=== PATIENT | female | born 1990 | race Caucasian/White ===

== ENCOUNTER 2023-03-20 23:10 | Emergency (ER) | payer OTHER, SELFPAY ==
[2023-03-20] VITALS (8 sets, daily range): BP systolic 93–152; BP diastolic 69–101; PULSE 90–102; RESP 20–27; TEMP 36.4; O2SAT 95–98
--- NOTE | ~2023-03-20 | XR_ITS ---
Clinical Indication: Shortness of breath PA and lateral views of the chest: Comparison: None Findings: The lungs are clear, without evidence of focal consolidation or pleural effusion. Cardiome diastinal silhouette is within normal limits. Bones and soft tissues are unremarkable. Impression: Normal chest. Reviewed, dictated and finalized at [facility]. ANALYST Impression: Normal chest.
--- NOTE | 2023-03-20 23:21 | ECG_ITS ---
Measurements Intervals Foley Rate: 86 P: 59 SD: 157 QRS: 48 QRSD: 87 T: 29 QT: 334 QTc: 401 Interpretive Statements SINUS RHYTHM WITH SINUS ARRHYTHMIA POSSIBLE ANTERIOR MYOCARDIAL INFARCTION , OF INDETERMINATE AGE [30 ms Q WAVE IN V3/V4, OR R < 0.2 mV IN V4] NO PREVIOUS ECG AVAILABLE FOR COMPARISON Electronically Signed On 03-21-2023 13:32:04 [employer] by Burke Bowden M.D.
[2023-03-20] MEDS: IPRATROPIUM BR 0.02% INH SOLN 0.5 MG/2.5 ML VIAL INHALATION (23:58)
[2023-03-20] MEDS: ALBUTEROL SULFATE NEB 2.5 MG/3 ML INH INHALATION (23:58)
[2023-03-21] VITALS (7 sets, daily range): BP systolic 123; BP diastolic 78; PULSE 80–106; RESP 14–25; O2SAT 97–98
--- NOTE | 2023-03-21 00:08 | PC.NURSE ---
Neb completed. Attempted IV x 1, unsuccessful. xray ready for pt. Will let xray take and will try again.
[2023-03-21] MEDS: methylPREDNISolone SOD SUCC 125 MG VIAL IV PUSH (01:02)
--- NOTE | 2023-03-21 01:37 | ED.GENADULT ---
HPI - General Adult General Chief complaint: Shortness of Breath/Dyspnea Stated complaint: SOB Time Seen by Provider: 03/20/23 23:26 History of Present Illness HPI narrative: patient is a year old female who presents emergency department chief complaint of shortness of breath. The patient has prior history of asthma reports that she has had a stressful day and reports that she started wheezing and having her typical asthma attack. The patient reports this is not as bad as when she has required hospitalization in the past. Related Data Allergies Allergy/AdvReac Type Severity Reaction Status Date / Time diazepam Allergy Unknown Anaphylactic Verified 03/20/23 23:10 Shock diphenhydramine Allergy Unknown Anaphylactic Verified 03/20/23 23:10 Shock morphine Allergy Unknown Anaphylactic Verified 03/20/23 23:10 Shock Review of Systems Review of Systems: A 10 system review of systems was completed on the patient and is negative except for what is stated in the HPI. Nursing and ancillary documentation was reviewed. Exam Narrative: GENERAL: Well-appearing, well-nourished, and in no acute distress. HEAD: Normocephalic, atraumatic. EYES: PERRLA and EOMI. ENT: Nares clear, no rhinorrhea or epistaxis. Mucous membranes moist. NECK: Supple. CHEST: Scattered wheezes to auscultation. No respiratory distress. HEART: Regular rate and rhythm. No murmur heard. Normal peripheral pulses. ABDOMEN: Soft, nontender, nondistended, normal active bowel sounds. EXTREMITIES: Normal range of motion. No edema. SKIN: Warm, dry, no rash. NEURO: No focal deficits. Alert and oriented x3. PSYCH: Normal mood and affect. Course Vital Signs Vital signs: Vital Signs Temperature 36.4 C 03/20/23 23:11 Pulse Rate 96 03/20/23 23:11 Respiratory Rate 26 H 03/20/23 23:11 Blood Pressure 152/101 H 03/20/23 23:11 Pulse Oximetry 95 03/20/23 23:11 Oxygen Delivery Room Air 03/20/23 23:11 Temperature 36.4 C 03/20/23 23:11 Pulse Rate 92 03/21/23 01:30 Respiratory Rate 20 03/21/23 01:30 Blood Pressure 144/85 H 03/20/23 23:32 Pulse Oximetry 97 03/21/23 01:30 Oxygen Delivery Room Air 03/20/23 23:53 Medical Decision Making [facility] Narrative Medical decision making narrative: differential diagnosis includes pneumothorax, asthma exacerbation, bronchospasm patient received IV steroids and DuoNeb in the emergency department. Chest x-ray showed no evidence of pneumothorax patient discharged home on prednisone Vital Signs Vital Signs: Vital Signs Temperature 36.4 C 03/20/23 23:11 Pulse Rate 96 03/20/23 23:11 Respiratory Rate 26 H 03/20/23 23:11 Blood Pressure 152/101 H 03/20/23 23:11 Pulse Oximetry 95 03/20/23 23:11 Oxygen Delivery Room Air 03/20/23 23:11 Temperature 36.4 C 03/20/23 23:11 Pulse Rate 92 03/21/23 01:30 Respiratory Rate 20 03/21/23 01:30 Blood Pressure 144/85 H 03/20/23 23:32 Pulse Oximetry 97 03/21/23 01:30 Oxygen Delivery Room Air 03/20/23 23:53 Discharge Plan Discharge Clinical Impression: Acute asthma exacerbation Patient Disposition: Home, Self-Care Condition: Stable Instructions: Antibiotic Form, Asthma (ED) Additional Instructions: the ultrasound he had on 03/02 at [place] did not show evidence of DVT Prescriptions: New prednisone 20 mg tablet 40 mg PO DAILY 5 Days Qty: 10 0RF Follow-up/Referrals: Claire,Tarun Brown MD [Primary Care Provider] - Time of Disposition: 01:39
== END 2023-03-21 02:15 | disposition home or self-care (01) ==
PROVIDERS: Emergency Provider Emergency Medicine; PCP Internal Medicine
DX: J45.901 Unspecified asthma with (acute) exacerbation (principal)
CPT/HCPCS: 71046; 93005; 94640; 96374; 99284; J2930